=== PATIENT | male | born 2000 | race Two or more races ===

== ENCOUNTER 2021-05-25 21:08 | Emergency (ER) | payer BC ==
[~2021-05-25] VITALS: Ht 170.2 cm; Wt 90.7 kg
[2021-05-26] MEDS ORDERED: KETOROLAC TROMETH 60MG/2ML VIAL IM ONE (05:30)
[2021-05-26 05:41] VITALS: BP 150/85
== END 2021-05-26 05:52 | disposition home or self-care (01) ==
LOC: ER 21:09
DX: S50.01XA Contusion of right elbow, initial encounter (principal); T80.89XA Other complications following infusion, transfusion and therapeutic injection, initial encounter; X58.XXXA Exposure to other specified factors, initial encounter; Y93.89 Activity, other specified; Y92.89 Other specified places as the place of occurrence of the external cause; Y99.8 Other external cause status
CPT/HCPCS: 96372; 99283; J1885